=== PATIENT | male | born 1990 | race Asian ===

== ENCOUNTER 2025-06-07 23:43 | Inpatient (IN) | payer OTHER ==
[~2025-06-07] VITALS: Ht 172.7 cm; Wt 82.9 kg
[2025-06-08 00:32] LABS: BASO # 0.1 10^3/uL (0.0-0.2); BASO % 0.8 % (0.0-1.0); EOS # 0.1 10^3/uL (0.0-0.5); EOS % 1.5 % (0.0-3.0); LYMPH # 1.5 10^3/uL (1.5-5.0); LYMPH % 24.7 % (24.0-44.0); MONO # 0.6 10^3/uL (0.0-0.8); MONO % 9.4 % (2.0-8.0); NEUTROPHILS # 3.8 10^3/uL (1.5-8.5); NEUTROPHILS % 62.9 % (36.0-66.0); PLATELET COUNT, AUTOMATED 295 10^3/uL (150-450)
[2025-06-08 00:36] LABS: ETHYL ALCOHOL (ETHANOL) 0.035 % (0.000-0.010)
[2025-06-08 00:37] LABS: CPK CREATINE PHOSPHOKINASE 179 U/L (46-171)
[2025-06-08 00:38] LABS: ALT/SGPT 30 U/L (7.0-40); AST/SGOT 21 U/L (<34); CALCIUM LEVEL 9.4 MG/DL (8.5-10.1); CARBON DIOXIDE LEVEL 24 MMOL/L (20-31); CHLORIDE LEVEL 107 MMOL/L (98-107); CREATININE FOR GFR 0.91 MG/DL (0.70-1.30); GLOMERULAR FILTRATION RATE > 90.0 (>60); POTASSIUM SERUM 3.8 MMOL/L (3.5-5.1); SALICYLATE LEVEL < 3.0 MG/DL (<30); SODIUM LEVEL 144 MMOL/L (136-145)
[2025-06-08] MEDS: NS (Normal Saline) 0.9% 1,000 ML IV ONE (01:47)
[2025-06-08 02:12] LABS: AMPHETAMINES LEVEL URINE NEGATIVE (NEGATIVE); BARBITURATES URINE NEGATIVE (NEGATIVE); BENZODIAZEPINES URINE NEGATIVE (NEGATIVE); CANNABINOIDS URINE NEGATIVE (NEGATIVE); COCAINE METABOLITE URINE NEGATIVE (NEGATIVE); METHADONE URINE NEGATIVE (NEGATIVE); OPIATES URINE NEGATIVE (NEGATIVE); PHENCYCLIDINE URINE NEGATIVE (NEGATIVE)
[2025-06-08] MEDS ORDERED: HOME MED LIST COMPLETE! XX SCH (08:55)
[2025-06-08] MEDS ORDERED: NICOTINE 14 MG/24 HR TRANSDERMAL TD SCH (09:00)
[2025-06-08] MEDS ORDERED: ACETAMINOPHEN 325 MG TAB PO PRN (10:05)
[2025-06-08] MEDS ORDERED: HALOPERIDOL 5 MG TAB PO PRN (10:05)
[2025-06-08] MEDS ORDERED: traZODone 50 MG TAB PO PRN (10:05)
[2025-06-08] MEDS ORDERED: LORazepam 1 MG TAB PO PRN (10:05)
[2025-06-08] MEDS ORDERED: MAALOX 30 ML SUSP *UDC PO PRN (10:05)
[2025-06-08] MEDS ORDERED: IBUPROFEN 400 MG TAB PO PRN (10:05)
[2025-06-08] MEDS ORDERED: OLANZapine 5 MG TAB PO PRN (10:05)
[2025-06-08] MEDS ORDERED: MOM 30 ML SUSPENSION UDC PO PRN (10:05)
[2025-06-08 10:40] VITALS: BP 135/97; TEMP 98.4; O2SAT 98
[2025-06-08 15:50] VITALS: BP 123/71; TEMP 98.3; O2SAT 97
[2025-06-09 06:40] VITALS: BP 146/86; TEMP 98; O2SAT 100
[2025-06-09 16:15] VITALS: BP 138/73; TEMP 98.7; O2SAT 97
[2025-06-09] MEDS: buPROPion **XL** 150 MG TABLET PO SCH (20:36)
[2025-06-10 06:36] VITALS: BP 131/79; TEMP 97.5; O2SAT 99
[2025-06-10 16:43] VITALS: BP 124/75; TEMP 97.9; O2SAT 97
[2025-06-11 06:25] VITALS: BP 123/72; TEMP 97.5; O2SAT 99
[2025-06-11 15:20] VITALS: BP 140/73; TEMP 97.9; O2SAT 97
[2025-06-12 06:28] VITALS: BP 130/70; TEMP 98.1; O2SAT 100
[2025-06-12] MEDS ORDERED: HYDR-3363 PO (07:01)
[2025-06-12] MEDS ORDERED: BUPR150T12 PO (07:01)
== END 2025-06-12 10:31 | disposition home or self-care (01) | DRG 885 ==
LOC: M ED 23:43 → M ED INP 06-08 10:01 → M PSY 06-08 10:40
PROVIDERS: ADMIT Internal Medicine; ATTEND Internal Medicine
DX: F32.2 Major depressive disorder, single episode, severe without psychotic features (principal); R45.851 Suicidal ideations; F17.290 Nicotine dependence, other tobacco product, uncomplicated